=== PATIENT | male | born 1985 | race Caucasian/White ===

== ENCOUNTER 2016-12-03 22:11 | Emergency (ER) | payer OTHER ==
[~2016-12-03] VITALS: Ht 170.2 cm; Wt 94.8 kg
[2016-12-03 22:16] VITALS: BP 120/72
== END 2016-12-03 23:03 | disposition left against medical advice (07) ==
LOC: ED 22:11
DX: Z53.21 Procedure and treatment not carried out due to patient leaving prior to being seen by health care provider (principal)

== ENCOUNTER 2016-12-21 11:16 | Emergency (ER) | payer OTHER ==
[2016-12-21 13:30] VITALS: BP 140/74
== END 2016-12-21 13:30 | disposition home or self-care (01) ==
LOC: ED 11:16
DX: R09.1 Pleurisy (principal); R07.9 Chest pain, unspecified; Z88.6 Allergy status to analgesic agent

== ENCOUNTER 2017-09-02 16:07 | Emergency (ER) | payer OTHER ==
[~2017-09-02] VITALS: Ht 172.7 cm; Wt 96.6 kg
[2017-09-02 16:33] VITALS: BP 155/90; Ht 172.7 cm; Wt 96.6 kg
== END 2017-09-02 18:45 | disposition left against medical advice (07) ==
LOC: ED 16:07
DX: Z53.21 Procedure and treatment not carried out due to patient leaving prior to being seen by health care provider (principal)

== ENCOUNTER 2018-09-16 20:39 | Emergency (ER) | payer OTHER ==
[~2018-09-16] VITALS: Ht 177.8 cm; Wt 103.2 kg
[2018-09-16 20:50] VITALS: Ht 177.8 cm; Wt 103.2 kg
[2018-09-16 22:33] VITALS: BP 125/59
== END 2018-09-16 22:33 | disposition home or self-care (01) ==
LOC: ED 20:39
DX: S22.42XA Multiple fractures of ribs, left side, initial encounter for closed fracture (principal); S46.011A Strain of muscle(s) and tendon(s) of the rotator cuff of right shoulder, initial encounter; Z88.6 Allergy status to analgesic agent; X58.XXXA Exposure to other specified factors, initial encounter; Y93.61 Activity, american tackle football; Y92.89 Other specified places as the place of occurrence of the external cause; Y99.8 Other external cause status
CPT/HCPCS: J2270

== ENCOUNTER 2018-09-29 01:31 | Emergency (ER) | payer OTHER ==
[~2018-09-29] VITALS: Ht 170.2 cm; Wt 103.4 kg
[2018-09-29 01:34] VITALS: Ht 170.2 cm; Wt 103.4 kg
[2018-09-29 04:20] VITALS: BP 147/86
== END 2018-09-29 04:20 | disposition home or self-care (01) ==
LOC: ED 01:31
DX: S22.32XA Fracture of one rib, left side, initial encounter for closed fracture (principal); Z88.6 Allergy status to analgesic agent; X58.XXXA Exposure to other specified factors, initial encounter; Y93.89 Activity, other specified; Y92.89 Other specified places as the place of occurrence of the external cause; Y99.8 Other external cause status
CPT/HCPCS: J2270; Q0162

== ENCOUNTER 2018-12-06 05:34 | Emergency (ER) | payer OTHER ==
[~2018-12-06] VITALS: Ht 170.2 cm; Wt 103.0 kg
[2018-12-06 05:43] VITALS: Ht 170.2 cm; Wt 103.0 kg
[2018-12-06 06:52] LABS: microscopic required? NO
[2018-12-06 06:55] LABS: BASOPHIL % 0.7 % (0-2); PLATELET COUNT 178 x10^3mcL (130-400); RED CELL DISTRIBUTION WIDTH 12.9 % (11.5-14.5)
[2018-12-06 07:13] LABS: CALCIUM 8.6 mg/dL (8.5-10.1); CARBON DIOXIDE 26.9 mmol/L (21-32); CHLORIDE SERUM 104 mmol/L (98-107); CREATININE SERUM 0.7 mg/dL (0.7-1.3); GFR1 > 60 mL/min; GLUCOSE SERUM 105 mg/dL (74-106); POTASSIUM SERUM 4.3 mmol/L (3.5-5.1); SODIUM SERUM 143 mmol/L (136-145)
[2018-12-06 07:24] LABS: ALBUMIN 3.5 g/dL (3.4-5.0); ALKALINE PHOSPHATASE 122 U/L (46-116); ALT/SGPT 48 U/L (16-63); AST/SGOT 60 U/L (15-37); BILIRUBIN TOTAL 0.5 mg/dL (0.20-1.00); CHOLESTEROL 181 mg/dL (<200); LIPASE 114 IU/L (73-393); T4(THYROXINE) 9.3 ug/dL (4.7-13.3); TOTAL PROTEIN, SERUM 7.7 g/dL (6.4-8.2)
[2018-12-06 07:25] LABS: HDL CHOLESTEROL 65 mg/dL (40-60)
[2018-12-06 07:27] LABS: AMPHETAMINE QUAL UR NONE DETECTED (See below)
[2018-12-06 07:28] LABS: UA SPECIFIC GRAVITY 1.025 (1.005-1.035); urine erythrocyte NEGATIVE (NEGATIVE)
[2018-12-06 09:18] VITALS: BP 131/79
== END 2018-12-06 09:18 | disposition home or self-care (01) ==
LOC: ED 05:34
PROVIDERS: Emergency Medicine
DX: T67.5XXA Heat exhaustion, unspecified, initial encounter (principal); F12.90 Cannabis use, unspecified, uncomplicated; E66.9 Obesity, unspecified; M79.10 Myalgia, unspecified site; Z68.35 Body mass index [BMI] 35.0-35.9, adult; Z88.6 Allergy status to analgesic agent; X30.XXXA Exposure to excessive natural heat, initial encounter; Y93.89 Activity, other specified; Y92.89 Other specified places as the place of occurrence of the external cause; Y99.0 Civilian activity done for income or pay
CPT/HCPCS: 82962; G0480; J1100; J1885; J7030